=== PATIENT | female | born 1975 | race Caucasian/White ===

== ENCOUNTER 2017-04-18 09:41 | Emergency (ER) | payer OTHER ==
[2017-04-18 10:47] LABS: BILIRUBIN NEGATIVE (NEGATIVE); BLOOD 3+ Ery/uL (NEGATIVE); CLARITY CLEAR (CLEAR); COLOR YELLOW (YELLOW); GLUCOSE (U) NORMAL (NORMAL); KETONE (U) NEGATIVE (NEGATIVE); LEUKOCYTES 2+ Leu/uL (NEGATIVE); NITRITE NEGATIVE (NEGATIVE); PROTEIN NEGATIVE (NEGATIVE); UROBILINOGEN 0.2 mg/dL (0.2-1.0)
[2017-04-18 10:52] LABS: URINARY RBC TNTC; URINARY WBC 20-50
[2017-04-18 10:53] LABS: BACTERIA TRACE; SQUAMOUS EPITHELIAL CELLS RARE
== END 2017-04-18 11:46 | disposition home or self-care (01) ==
LOC: FER 09:41
PROVIDERS: Emergency Medicine
DX: N39.0 Urinary tract infection, site not specified (principal); I10 Essential (primary) hypertension; F41.9 Anxiety disorder, unspecified; F17.210 Nicotine dependence, cigarettes, uncomplicated; Z79.899 Other long term (current) drug therapy
CPT/HCPCS: 81001; 99283

== ENCOUNTER 2021-05-16 18:19 | Emergency (ER) | payer OTHER ==
[2021-05-16 19:19] LABS: BASOPHIL 0.4 % (0-2); EOSINOPHIL 1.7 % (0-5); HCT 37.7 % (37.0-47.0); HGB 12.7 g/dl (12.5-16.0); LYMPHOCYTE 22.5 % (15-48); MCH 32.2 pg (25.0-31.0); MCHC 33.7 g/dL (32.0-36.0); MCV 95.7 fL (78.0-100.0); MONOCYTE 6.3 % (0-12); MPV 9.8 fL (6.0-9.5); NEUTROPHIL 68.5 % (41-80); NRBC 0; PLT 322 K/uL (150-400); RBC 3.94 M/uL (4.20-5.40); RDW 12.3 % (11.5-14.0); WBC 9.5 K/uL (4.0-10.5)
[2021-05-16 19:31] LABS: ALBUMIN 3.5 g/dL (3.4-5.0); BILIRUBIN - TOTAL 0.1 mg/dL (0.2-1.0); BUN/CREAT RATIO (CALC) 7.5 RATIO; CREATININE 0.8 mg/dL (0.51-0.95); GLOBULIN (CALCULATION) 3.8 g/dL; POTASSIUM 4.3 mmol/L (3.5-5.1); TOTAL PROTEIN 7.3 g/dL (6.4-8.2)
[2021-05-16 19:41] LABS: INR 0.99 (0.9-1.2); PROTHROMBIN TIME 12.5 SECONDS (11.8-13.4); PTT 28.2 SECONDS (24.4-34.7)
[2021-05-16 19:48] LABS: BILIRUBIN NEGATIVE (NEGATIVE); BLOOD NEGATIVE Ery/uL (NEGATIVE); CLARITY CLEAR (CLEAR); COLOR YELLOW (YELLOW); GLUCOSE (U) NORMAL (NORMAL); LEUKOCYTES NEGATIVE Leu/uL (NEGATIVE); NITRITE NEGATIVE (NEGATIVE); PROTEIN NEGATIVE (NEGATIVE); SPECIFIC GRAVITY <=1.005 (1.001-1.030); UROBILINOGEN 0.2 mg/dL (0.2-1.0)
== END 2021-05-16 19:50 | disposition other institution (70) ==
LOC: FER 18:19
PROVIDERS: Emergency Medicine
DX: I63.9 Cerebral infarction, unspecified (principal); R47.01 Aphasia; R29.709 NIHSS score 9; Z86.73 Personal history of transient ischemic attack (TIA), and cerebral infarction without residual deficits; Z95.1 Presence of aortocoronary bypass graft
CPT/HCPCS: 36415; 70450; 71045; 80053; 80061; 81003; 84484; 85025; 85610; 85730; 93005; J7030

== ENCOUNTER 2021-07-03 21:11 | Inpatient (IN) | payer OTHER ==
[~2021-07-03] VITALS: Ht 160 cm; Wt 88.0 kg
[2021-07-03 23:09] LABS: BASOPHIL 0.4 % (0-2); EOSINOPHIL 0.2 % (0-5); HCT 36.7 % (37.0-47.0); HGB 12.6 g/dl (12.5-16.0); LYMPHOCYTE 11.2 % (15-48); MCH 32.3 pg (25.0-31.0); MCHC 34.3 g/dL (32.0-36.0); MCV 94.1 fL (78.0-100.0); MONOCYTE 5.1 % (0-12); MPV 9.7 fL (6.0-9.5); NEUTROPHIL 82.6 % (41-80); NRBC 0; PLT 319 K/uL (150-400); RDW 12.4 % (11.5-14.0); WBC 13.2 K/uL (4.0-10.5)
[2021-07-03 23:56] LABS: ALBUMIN 3.5 g/dL (3.4-5.0); ALKALINE PHOSHATASE 116 U/L (46-116); ALT 43 U/L (14-59); AST 21 U/L (15-37); BILIRUBIN - TOTAL 0.3 mg/dL (0.2-1.0); BUN 5 mg/dL (7-18); CHLORIDE 104 mmol/L (98-107); CO2 (BICARBONATE) 22 mmol/L (21-32); CREATININE 0.83 mg/dL (0.51-0.95); GLOBULIN (CALCULATION) 3.7 g/dL; GLUCOSE 116 mg/dL (74-106); TOTAL PROTEIN 7.2 g/dL (6.4-8.2)
[2021-07-03 23:57] LABS: ACETAMINOPHEN (TYLENOL) < 2.0 ug/mL (10.0-30.0)
[2021-07-04 02:16] LABS: BILIRUBIN NEGATIVE (NEGATIVE); BLOOD TRACE-INTACT Ery/uL (NEGATIVE); CLARITY CLEAR (CLEAR); COLOR YELLOW (YELLOW); GLUCOSE (U) NORMAL (NORMAL); LEUKOCYTES NEGATIVE Leu/uL (NEGATIVE); NITRITE NEGATIVE (NEGATIVE); PROTEIN NEGATIVE (NEGATIVE); UROBILINOGEN 0.2 mg/dL (0.2-1.0)
[2021-07-04 02:23] LABS: BACTERIA TRACE; URINARY RBC RARE
--- NOTE | 2021-07-04 06:18 | NUR ---
NURSE RECEIVED PHONE CALL FROM [facility] NURSE ESTRADA IN REGARDS TO CONDITION OF PATIENT, INFORMED OF REQUESTED EKG AND UNCOLLECTED URINE FOR AND DRUG SCREEN.
[2021-07-04 10:25] LABS: HCG (URINE) SCREEN NEGATIVE (NEGATIVE)
[2021-07-04 10:26] LABS: AMPHETAMINES NEGATIVE (NEGATIVE); BARBITURATES NEGATIVE (NEGATIVE); ECSTASY (MDMA) NEGATIVE (NEGATIVE); MARIJUANA (THC) NEGATIVE (NEGATIVE); METHADONE NEGATIVE (NEGATIVE); OPIATES NEGATIVE (NEGATIVE); OXYCODONE NEGATIVE (NEGATIVE)
[2021-07-04] MEDS ORDERED: PLAVIX75 MG PO (15:13)
[2021-07-04] MEDS ORDERED: ASPIRIN EC81 MG PO (15:13)
[2021-07-04] MEDS ORDERED: LIPITOR40 MG PO (15:13)
[2021-07-04] MEDS ORDERED: ATARAX25 MG PO (15:14)
[2021-07-04] MEDS ORDERED: COZAAR50 MG PO (15:14)
[2021-07-04] MEDS ORDERED: NEURONTIN300 MG PO (15:14)
[2021-07-04] MEDS ORDERED: LOPRESSOR25 MG PO (15:15)
[2021-07-04] MEDS ORDERED: ONDANSETRON ODT4 MG SL (15:15)
[2021-07-04] MEDS ORDERED: SEROQUEL 25MG T25 MG PO ×2 (15:18→15:19)
[2021-07-04] MEDS ORDERED: VITAMIN D325 MC2 PO (15:18)
[2021-07-04] MEDS ORDERED: VITAMIN B12-FO1 EACH PO (15:18)
[2021-07-04] MEDS ORDERED: WELLBUTRIN XL150 MG PO (15:19)
[2021-07-04] MEDS ORDERED: PROZAC20 MG PO (15:19)
[2021-07-05 05:50] LABS: BASOPHIL 0.6 % (0-2); EOSINOPHIL 2.8 % (0-5); HCT 34.7 % (37.0-47.0); HGB 11.2 g/dl (12.5-16.0); LYMPHOCYTE 31.2 % (15-48); MCH 31.7 pg (25.0-31.0); MCHC 32.3 g/dL (32.0-36.0); MONOCYTE 7.3 % (0-12); MPV 9.9 fL (6.0-9.5); NEUTROPHIL 57.8 % (41-80); NRBC 0; PLT 272 K/uL (150-400); RBC 3.53 M/uL (4.20-5.40); RDW 12.9 % (11.5-14.0); WBC 7.1 K/uL (4.0-10.5)
[2021-07-05 05:53] LABS: MCV 98.3 fL (78.0-100.0)
[2021-07-05 06:12] LABS: ALBUMIN 2.9 g/dL (3.4-5.0); BILIRUBIN - TOTAL 0.3 mg/dL (0.2-1.0); BUN/CREAT RATIO (CALC) 6.8 RATIO; CREATININE 0.73 mg/dL (0.51-0.95); GLOBULIN (CALCULATION) 3.1 g/dL; MAGNESIUM 1.8 mg/dL (1.8-2.4); POTASSIUM 4.3 mmol/L (3.5-5.1)
--- NOTE | 2021-07-05 14:17 | NUR ---
07/05/21 Patient was transferred to [facility]
== END 2021-07-05 13:08 | DRG 918 ==
LOC: FER 21:11 → FTCU 07-04 00:48
PROVIDERS: Emergency Medicine; Nurse Practitioner; ADMIT Internal Medicine
DX: T43.292A Poisoning by other antidepressants, intentional self-harm, initial encounter (principal); I69.351 Hemiplegia and hemiparesis following cerebral infarction affecting right dominant side; F41.8 Other specified anxiety disorders; Z20.822 Contact with and (suspected) exposure to COVID-19; F31.9 Bipolar disorder, unspecified; Z79.02 Long term (current) use of antithrombotics/antiplatelets; Z79.82 Long term (current) use of aspirin; Z79.899 Other long term (current) drug therapy; Z79.51 Long term (current) use of inhaled steroids; Z95.1 Presence of aortocoronary bypass graft; Z98.890 Other specified postprocedural states
CPT/HCPCS: 36415; 80053; 80305; 81001; 83735; 84703; 85025; 93005; G0480; J1953; J2405; J3475; J7030; U0002

== ENCOUNTER 2021-07-18 07:15 | Emergency (ER) | payer OTHER ==
[~2021-07-18 07:15] MED LIST: ASPIRIN EC81 MG PO; ATARAX25 MG PO; COZAAR50 MG PO; LIPITOR40 MG PO; LOPRESSOR25 MG PO; NEURONTIN300 MG PO; ONDANSETRON ODT4 MG SL; PLAVIX75 MG PO; PROZAC20 MG PO; SEROQUEL 25MG T25 MG PO; VITAMIN B12-FO1 EACH PO; VITAMIN D325 MC2 PO; WELLBUTRIN XL150 MG PO
[2021-07-18 08:22] LABS: BASOPHIL 0.6 % (0-2); HCT 36.1 % (37.0-47.0); HGB 12.1 g/dl (12.5-16.0); LYMPHOCYTE 18.6 % (15-48); MCH 31.9 pg (25.0-31.0); MCHC 33.5 g/dL (32.0-36.0); MCV 95.3 fL (78.0-100.0); MONOCYTE 6.7 % (0-12); MPV 10.3 fL (6.0-9.5); NEUTROPHIL 71.6 % (41-80); NRBC 0; PLT 307 K/uL (150-400); RBC 3.79 M/uL (4.20-5.40); WBC 8.4 K/uL (4.0-10.5)
[2021-07-18 08:41] LABS: INR 0.99 (0.9-1.2); PROTHROMBIN TIME 12.5 SECONDS (11.8-13.4); PTT 39.7 SECONDS (24.4-34.7)
[2021-07-18 09:31] LABS: ALBUMIN 3.4 g/dL (3.4-5.0); BILIRUBIN - TOTAL 0.2 mg/dL (0.2-1.0); BUN/CREAT RATIO (CALC) 12.2 RATIO; CREATININE 0.74 mg/dL (0.51-0.95); GLOBULIN (CALCULATION) 3.3 g/dL; POTASSIUM 4.6 mmol/L (3.5-5.1); TOTAL PROTEIN 6.7 g/dL (6.4-8.2)
[2021-07-18] MEDS ORDERED: AZITHROMYCIN250 MG PO (09:52)
[2021-07-18] MEDS ORDERED: CEFPODOXIME PR200 MG PO (09:52)
== END 2021-07-18 10:05 | disposition home or self-care (01) ==
LOC: FER 07:15
PROVIDERS: Internal Medicine
DX: J18.9 Pneumonia, unspecified organism (principal); R10.9 Unspecified abdominal pain; I25.10 Atherosclerotic heart disease of native coronary artery without angina pectoris; I10 Essential (primary) hypertension; Z86.73 Personal history of transient ischemic attack (TIA), and cerebral infarction without residual deficits; F17.210 Nicotine dependence, cigarettes, uncomplicated; Z88.8 Allergy status to other drugs, medicaments and biological substances; Z20.822 Contact with and (suspected) exposure to COVID-19
CPT/HCPCS: 36415; 71045; 80053; 83690; 84145; 84484; 85025; 85610; 85730; 93005; J0696; U0002

== ENCOUNTER → 2021-12-18 | Day surgery (SDC) | payer OTHER ==
[~2021-12-18] VITALS: Ht 160 cm; Wt 88.0 kg
[~2021-12-18] MED LIST changes: +AZITHROMYCIN250 MG PO; +CEFPODOXIME PR200 MG PO; +NORCO 5-325 TA1 EACH PO
[2021-12-18 10:23] LABS: HCG (URINE) SCREEN NEGATIVE (NEGATIVE)
[2021-12-18 11:00] LABS: HCT 36.7 % (37.0-47.0); HGB 12.6 g/dl (12.5-16.0); MCH 31.1 pg (25.0-31.0); MCHC 34.3 g/dL (32.0-36.0); MCV 90.6 fL (78.0-100.0); MPV 9.8 fL (6.0-9.5); RBC 4.05 M/uL (4.20-5.40); RDW 12.5 % (11.5-14.0)
[2021-12-18 11:02] LABS: ALBUMIN 3.8 g/dL (3.4-5.0); BILIRUBIN - TOTAL 0.5 mg/dL (0.2-1.0); BUN/CREAT RATIO (CALC) 9.4 RATIO; CREATININE 0.64 mg/dL (0.51-0.95); GLOBULIN (CALCULATION) 3.3 g/dL; POTASSIUM 4.2 mmol/L (3.5-5.1); TOTAL PROTEIN 7.1 g/dL (6.4-8.2)
== END | disposition home or self-care (01) ==
LOC: FAS 09:21
PROVIDERS: Surgery
DX: L72.3 Sebaceous cyst (principal); E78.5 Hyperlipidemia, unspecified; I10 Essential (primary) hypertension; K21.9 Gastro-esophageal reflux disease without esophagitis; I25.2 Old myocardial infarction; F17.210 Nicotine dependence, cigarettes, uncomplicated; Z88.8 Allergy status to other drugs, medicaments and biological substances; Z79.82 Long term (current) use of aspirin; Z86.73 Personal history of transient ischemic attack (TIA), and cerebral infarction without residual deficits; Z79.01 Long term (current) use of anticoagulants; Z95.5 Presence of coronary angioplasty implant and graft; Z95.1 Presence of aortocoronary bypass graft
CPT/HCPCS: 36415; 80053; 84703; J1100; J1885; J2250; J2405; J2704; J3010; J7120

== ENCOUNTER 2021-12-20 21:12 | Emergency (ER) | payer OTHER | END 2021-12-20 22:20 | disposition home or self-care (01) | LOC: FER 21:12 | DX: T81.31XA Disruption of external operation (surgical) wound, not elsewhere classified, initial encounter (principal); I69.951 Hemiplegia and hemiparesis following unspecified cerebrovascular disease affecting right dominant side; F17.200 Nicotine dependence, unspecified, uncomplicated | CPT/HCPCS: 99283 ==